=== PATIENT | male | born 2000 | race African-American/Black ===

== ENCOUNTER 2022-07-25 17:54 | Emergency (ER) | payer SELFPAY ==
[~2022-07-25] VITALS: Ht 182.9 cm; Wt 91.0 kg
[2022-07-25] MEDS ORDERED: IBUPROFEN 600MG TABLET PO ONE (18:30)
[2022-07-25] MEDS ORDERED: IBUP-2029 MT (18:36)
[2022-07-25 18:45] VITALS: BP 129/72
== END 2022-07-25 18:48 | disposition home or self-care (01) ==
LOC: ER 17:54
DX: S20.211A Contusion of right front wall of thorax, initial encounter (principal); J45.909 Unspecified asthma, uncomplicated; V49.9XXA Car occupant (driver) (passenger) injured in unspecified traffic accident, initial encounter; Y93.89 Activity, other specified; Y92.89 Other specified places as the place of occurrence of the external cause; Y99.8 Other external cause status
CPT/HCPCS: 71045; 99283